=== PATIENT | male | born 1980 | race Two or more races ===

== ENCOUNTER 2022-05-09 15:51 | Emergency (ER) | payer MEDICAID, OTHER ==
[~2022-05-09] VITALS: Ht 172.7 cm; Wt 250.0 kg
[2022-05-09] MEDS ORDERED: SODIUM CHLORIDE 0.9% 1,000 ML IV ONE (16:15)
[2022-05-09 16:47] LABS: Eosinophils # (auto) 0 10 ^3/uL (0-0.8); Lymphocytes # (auto) 3.5 10 ^3/uL (0.4-5.4); Neutrophils # (auto) 4.1 10 ^3/uL (1.6-8.6); White Blood Cell 8.5 10^3/uL (4.4-10.8)
[2022-05-09 16:48] LABS: Basophils # (auto) 0 10 ^3/uL (0-0.2); Basophils % (auto) 0.6 % (0.0-2.0); Eosinophils % (auto) 0.2 % (0.0-7.0); Hematocrit 44.5 % (41.0-53.0); Hemoglobin 13.5 g/dL (13.5-17.5); Lymphocytes % (auto) 41.3 % (10.0-50.0); Mean Corpuscular Hemoglobin 23.7 pg (28.0-32.0); Mean Corpuscular Hgb Conc. 30.4 g/dL (32.0-36.0); Mean Corpuscular Volume 78.1 fL (80.0-100.0); Monocytes # (auto) 0.8 10 ^3/uL (0-1.3); Monocytes % (auto) 9.6 % (0.0-12.0); Neutrophils % (auto) 48.3 % (37.0-80.0); Nucleated Red Blood Cells % 0.3 %
[2022-05-09 17:07] LABS: Albumin 3.1 g/dL (3.4-5.0); Calcium 9.2 mg/dL (8.5-10.1); Potassium 3.3 mmol/L (3.5-5.1)
[2022-05-09 17:11] LABS: BUN/Creatinine Ratio 8.9; Bilirubin, Total 0.3 mg/dL (0.2-1.0); Total Protein 7.1 g/dL (6.4-8.2)
[2022-05-10] MEDS ORDERED: levETIRAcetam 500 MG/5ML INJ IV ONE (02:34)
[2022-05-10] MEDS ORDERED: LORazepam 2MG/ML-1ML VIAL IV ONE (14:45)
[2022-05-10] MEDS ORDERED: SODIUM CHLORIDE 0.9% 1,000 ML IV ONE (14:45)
== END 2022-05-10 21:00 | disposition short-term general hospital (02) ==
LOC: EDBD 15:51 → ER 15:51
DX: G93.41 Metabolic encephalopathy (principal); G93.9 Disorder of brain, unspecified
CPT/HCPCS: 36415; 70450; 71045; 80053; 84484; 85025; 93005; 96361; 96365; 99291; J1953; J7030; J7060